=== PATIENT | male | born 1990 | race Asian ===

== ENCOUNTER 2016-08-21 12:08 | Outpatient (CLI) | payer OTHER | END 2016-08-21 12:09 | disposition home or self-care (01) | DX: S13.8XXA Sprain of joints and ligaments of other parts of neck, initial encounter (principal); S23.8XXA Sprain of other specified parts of thorax, initial encounter; S33.5XXA Sprain of ligaments of lumbar spine, initial encounter; S33.8XXA Sprain of other parts of lumbar spine and pelvis, initial encounter; M54.30 Sciatica, unspecified side; M62.40 Contracture of muscle, unspecified site ==

== ENCOUNTER 2016-11-12 14:51 | Outpatient (CLI) | payer MEDICAID | END 2016-11-12 23:59 | disposition home or self-care (01) | DX: R10.13 Epigastric pain (principal) ==

== ENCOUNTER 2017-07-22 03:00 | Emergency (ER) | payer MEDICAID ==
[2017-07-22] MEDS ORDERED: SODIUM CHLORIDE 0.9% 1,000 ML IV ONE (03:21)
[2017-07-22] MEDS ORDERED: KETOROLAC 30 MG/ML VIAL IVP STA (03:22)
--- NOTE | 2017-07-22 03:41 | ED Physician Documentation ---
History of Present Illness - Stated complaint Stated Complaint: HEADACHE - Chief complaint Chief Complaint: General - History obtained from History obtained from: Patient (pt with a hx of daily headaches that is not taking his daily headache medications becasue "it has too many sideeffects" who also has had CT and MRI for his headaches in the past 6 months here for evaluation of a right frontal headache and posterior headache. states that he woke from sleep approx 1 hour prior to arrival to the ER with this symptoms. states that it is different from his prior heaches in location and intensity. No fevers, no trauma) Review of Systems Constitutional: denies: Fever, Chills Eyes: reports: Decreased vision (blurry), Photophobia. denies: Loss of vision Ears: denies: Ear pain, Drainage/discharge, Tinnitus/ringing Nose: denies: Congestion, Sinus pressure / pain Throat: denies: Sore throat Cardiac: denies: Chest pain / pressure Respiratory: denies: Cough GI: denies: Nausea, Vomiting, Constipation, Diarrhea Skin: denies: Rash, Lesions Musculoskeletal: denies: Neck pain, Back pain Neurologic: reports: Headache. denies: Generalized weakness, Confused, Altered mental status, Head injury, LOC PD PAST MEDICAL HISTORY - Past Medical History Past Medical History: Yes Cardiovascular: None Respiratory: None Neuro: None Endocrine/Autoimmune: None GI: None : None HEENT: None Psych: None Musculoskeletal: None Derm: None Other Past Medical History: MIGRAINE HEADACHES.. - Past Surgical History Past Surgical History: Yes General: Other HEENT: Tonsil/Adenoidectomy - Allergies Allergies/Adverse Reactions: Allergies Allergy/AdvReac Type Severity Reaction Status Date / Time Sulfa (Sulfonamide AdvReac Rash Verified 07/22/17 03:12 Antibiotics) - Social History Does the pt smoke?: No Smoking Status: Never smoker Does the pt drink ETOH?: Yes Does the pt have substance abuse?: No - Immunizations Immunizations are current?: Yes - POLST Patient has POLST: No PD ED PE NORMAL - Vitals Vital signs reviewed: Yes - General General: Alert and oriented X 3, No acute distress, Well developed/nourished - HEENT HEENT: Atraumatic, PERRL, EOMI, Moist mucous membranes, Pharynx benign - Cardiac Cardiac: RRR, No murmur - Respiratory Respiratory: No respiratory distress, Clear bilaterally - Derm Derm: Normal color, No rash - Extremities Extremities: No deformity, No edema - Neuro Neuro: Alert and oriented X 3, phlebotomy technologist 2-12 intact, No motor deficit, No sensory deficit, Normal speech Eye Opening: Spontaneous Motor: Obeys Commands Verbal: Oriented GCS Score: 15 - Psych Psych: Normal mood, Normal affect PD ED PE EXPANDED - Neck Neck: Supple w/out meningeal sx, No tenderness. No: Stiff neck, Soft tissue TTP , Bony TTP, Limited ROM - Neuro Neuro: Alert and Oriented X 3, Normal motor, Normal Sensation, Normal Speech, CNII-XII intact, PERRL, Normal gait, Normal speech. No: Confused, Disoriented, Lethargic, Obtunded, Unresponsive, Weakness, Abnormal sensation, CN deficit, Dyscongugate gaze, Nystagmus, Aphasia, Dysarthria Results - Vitals Vitals: Vital Signs - 24 hr 07/22/17 07/22/17 07/22/17 03:09 04:19 04:34 Temperature 36.0 C L Heart Rate 85 69 Respiratory 17 16 16 Rate Blood Pressure 119/81 H 121/89 H O2 Saturation 99 99 07/22/17 05:53 Temperature Heart Rate Respiratory 15 Rate Blood Pressure O2 Saturation Oxygen O2 Source Room air PD MEDICAL DECISION MAKING - ED course Complexity details: considered differential, d/w patient ED course: pt with hx of headaches. Initial orders of reglan and benadryl the pt declined because it said that it gave him the feeling of "impending doom" the last time he took it. He declined the offer for other medications like phenergan and haldol. He stated that the only medicaitons that he took in the past that helped were hydrocodone. i told him that I do not give opioids for hedaches and offered toradol which he accepted. he was able to sleep and on re- evaluation he stated that the headache was a 3/10 and improved. Will send home. pt given return precautions. Departure - Departure Disposition: 01 Home, Self Care Clinical Impression: Headache Condition: Good Instructions: ED Cephalgia Unspecified Follow-Up: Eliane Chirinos DO [Primary Care Provider] - Comments: Recommend that you take all of your medications as directed. Call your primary care provider for a follow up and return to the ER for any new symptoms.
[2017-07-22] MEDS: diphenhydrAMINE INJ 50 MG/ML VIAL IVP STA ×2 (03:42→03:53)
[2017-07-22] MEDS: METOCLOPRAMIDE 10 MG/2 ML VIAL IVP STA ×2 (03:42→03:53)
[2017-07-22 06:49] VITALS: BP 122/84
== END 2017-07-22 06:57 | disposition home or self-care (01) ==
LOC: ED 03:00
DX: R51 Headache (principal)
CPT/HCPCS: 96361; 96374; 99283; 99284

== ENCOUNTER 2017-08-20 16:29 | Emergency (ER) | payer MEDICAID ==
[2017-08-20] MEDS ORDERED: KETOROLAC 30 MG/ML VIAL IM STA (17:04)
[2017-08-20] MEDS ORDERED: HYDROmorphone 1 MG/ML SYRINGE IM STA (17:04)
--- NOTE | 2017-08-20 17:07 | ED Physician Documentation ---
History of Present Illness - Stated complaint Stated Complaint: AB PX - Chief complaint Chief Complaint: Abd Pain - History obtained from History obtained from: Patient (pt is here with what he thinks is a left sided kidney stone. he states that 1 year ago he had the same symptoms and he had a CT which said that he had a stone. he staes that over the past couple days he has had slight symptoms then today had a sudden onset of left flank pain. no fevers, no urinary sx.) Review of Systems Constitutional: denies: Fever, Chills Respiratory: denies: Dyspnea GI: reports: Abdominal Pain, Nausea, Vomiting. denies: Abdominal Swelling, Constipation, Diarrhea : denies: Dysuria, Hesitancy, Unable to Void, Hematuria Skin: denies: Rash, Lesions Musculoskeletal: reports: Other (left flank pain). denies: Back pain Neurologic: denies: Headache PD PAST MEDICAL HISTORY - Past Medical History Cardiovascular: None Respiratory: None Neuro: None Endocrine/Autoimmune: None GI: None : None HEENT: None Psych: None Musculoskeletal: None Derm: None - Past Surgical History Past Surgical History: Yes General: Other HEENT: Tonsil/Adenoidectomy - Present Medications Home Medications: Ambulatory Orders Medication Instructions Recorded Confirmed Dextroamphetamine/Amphetamine 40 mg ORAL BID 08/20/17 08/20/17 [Adderall 20 mg Tablet] HYDROcod/ACETAM 5/325 [[place] 5/325] 1 each PO Q6H PRN #14 tablet 08/20/17 Ondansetron Odt [Zofran Odt] 4 mg TL Q6H PRN #10 tablet 08/20/17 - Allergies Allergies/Adverse Reactions: Allergies Allergy/AdvReac Type Severity Reaction Status Date / Time Sulfa (Sulfonamide AdvReac Rash Verified 08/20/17 16:34 Antibiotics) - Social History Does the pt smoke?: No Smoking Status: Never smoker Does the pt drink ETOH?: Yes Does the pt have substance abuse?: No - Immunizations Immunizations are current?: Yes - POLST Patient has POLST: No PD ED PE NORMAL - Vitals Vital signs reviewed: Yes - General General: Alert and oriented X 3, No acute distress - Cardiac Cardiac: RRR, No murmur - Respiratory Respiratory: No respiratory distress - Abdomen Abdomen: Soft, Other (no increase in tenderness to the right flank. ) - Back Back: No: No CVA TTP (left CVA tenderness) - Derm Derm: Normal color, No rash - Extremities Extremities: No deformity - Neuro Neuro: Alert and oriented X 3 Eye Opening: Spontaneous Motor: Obeys Commands Verbal: Oriented GCS Score: 15 - Psych Psych: Normal mood, Normal affect Results - Vitals Vitals: Vital Signs - 24 hr 08/20/17 16:32 Temperature 36.6 C Heart Rate 61 Respiratory 18 Rate Blood Pressure 172/98 H O2 Saturation 100 Oxygen O2 Source Room air PD MEDICAL DECISION MAKING - ED course Complexity details: d/w patient ED course: pt with hx of renal stones. no hx of kidney problems. had some vomiting today. discussed with patient. will hold on CT for now. w/o a hx of renal problems will hold on labs for now. pt has no sx of a UTI. discussed this with the patient. given IM meds here in the ER. he was given return precautions. Departure - Departure Disposition: Home, Self Care Clinical Impression: Renal colic on left side Condition: Good Instructions: ED Stone Renal W Colic Follow-Up: Eliane Chirinos DO [Primary Care Provider] - Prescriptions: HYDROcod/ACETAM 5/325 [[place] 5/325] 1 each PO Q6H PRN #14 tablet PRN Reason: Pain Ondansetron Odt [Zofran Odt] 4 mg TL Q6H PRN #10 tablet PRN Reason: Nausea / Vomiting Comments: take all of your medications as instructed. Return to the ER for any new symptoms, fevers, inability to tolerate oral fluids or any other new or worsening symptoms.
[2017-08-20 17:55] VITALS: BP 124/82
== END 2017-08-20 17:55 | disposition home or self-care (01) ==
LOC: ED 16:29
DX: N23 Unspecified renal colic (principal); Z87.442 Personal history of urinary calculi
CPT/HCPCS: 96372; 99283; J1170

== ENCOUNTER 2017-08-25 16:27 | Emergency (ER) | payer MEDICAID ==
[2017-08-25] MEDS ORDERED: ONDANSETRON 4 MG/2 ML VIAL IVP STA (18:31)
[2017-08-25] MEDS ORDERED: KETOROLAC 60 MG/2 ML VIAL IVP STA (18:31)
[2017-08-25] MEDS ORDERED: HYDROmorphone 1 MG/ML SYRINGE IVP STA ×2 (18:31→19:25)
[2017-08-25] MEDS ORDERED: SODIUM CHLORIDE 0.9% 1,000 ML IV ONE (18:32)
--- NOTE | 2017-08-25 18:33 | ED Physician Documentation ---
History of Present Illness - Stated complaint Stated Complaint: BACK PX - Chief complaint Chief Complaint: General - History obtained from History obtained from: Patient - History of Present Illness Timing: Other (He had a kidney stone on the left last year, the CT was reviewed , it was actually May 2016, he had a 3 mm left distal ureteral calculus. He had recurrent pain over last few days and was seen here. He was better with pain medicine but now he is out. No hematuria. Pain is of the left flank radiating to the left lower quadrant.) Review of Systems Constitutional: reports: Reviewed and negative Cardiac: denies: Chest pain / pressure, Palpitations Respiratory: denies: Dyspnea, Cough GI: reports: Abdominal Pain, Nausea : denies: Dysuria, Frequency, Hesitancy, Hematuria PD PAST MEDICAL HISTORY - Past Medical History Cardiovascular: None Respiratory: None Neuro: None Endocrine/Autoimmune: None GI: None : None HEENT: None Psych: None Musculoskeletal: None Derm: None - Past Surgical History Past Surgical History: Yes General: Other HEENT: Tonsil/Adenoidectomy - Present Medications Home Medications: Ambulatory Orders Medication Instructions Recorded Confirmed Dextroamphetamine/Amphetamine 40 mg ORAL BID 08/20/17 08/20/17 [Adderall 20 mg Tablet] Ondansetron Odt [Zofran Odt] 4 mg TL Q6H PRN #10 tablet 08/20/17 HYDROcod/ACETAM 5/325 [[place] 5/325] 1 - 2 ea PO Q6H PRN #15 tablet 08/25/17 Tamsulosin [Flomax] 0.4 mg PO DAILY #14 capsule 08/25/17 - Allergies Allergies/Adverse Reactions: Allergies Allergy/AdvReac Type Severity Reaction Status Date / Time Sulfa (Sulfonamide AdvReac Rash Verified 08/25/17 16:45 Antibiotics) - Social History Does the pt smoke?: No Smoking Status: Never smoker Does the pt drink ETOH?: Yes Does the pt have substance abuse?: No - Immunizations Immunizations are current?: Yes - POLST Patient has POLST: No PD ED PE NORMAL - Vitals Vital signs reviewed: Yes - General General: Alert and oriented X 3, No acute distress - Respiratory Respiratory: No respiratory distress, Clear bilaterally - Abdomen Abdomen: Normal bowel sounds, Soft, Non tender - Back Back: No CVA TTP, No spinal TTP - Extremities Extremities: No edema, No calf tenderness / cord - Neuro Neuro: Alert and oriented X 3, Normal speech Results - Vitals Vitals: Vital Signs - 24 hr 08/25/17 16:42 Temperature 37.4 C Heart Rate 64 Respiratory 16 Rate Blood Pressure 137/83 H O2 Saturation 99 Oxygen O2 Source Room air - Labs Labs: Laboratory Tests 08/25/17 08/25/17 08/25/17 18:55 18:55 19:10 WBC 5.8 RBC 5.16 Hgb 14.8 Hct 43.8 MCV 85.0 MCH 28.6 MCHC 33.7 RDW 12.5 Plt Count 246 MPV 7.7 Neut # 3.6 Lymph # 1.7 [place] # 0.4 Eos # 0.1 Baso # 0.1 Absolute Nucleated RBC 0.00 Nucleated RBC % 0.0 Sodium 139 Potassium 3.6 Chloride 106 Carbon Dioxide 24 Anion Gap 9.0 BUN 12 Creatinine 0.9 Estimated GFR (MDRD) 101 Glucose 86 Calcium 8.4 L Total Bilirubin 0.4 AST 22 ALT 39 Alkaline Phosphatase 46 Total Protein 6.9 Albumin 4.2 Globulin 2.7 Albumin/Globulin Ratio 1.6 Lipase 25 Urine Color YELLOW Urine Clarity CLEAR Urine pH 7.0 Ur Specific [place] <=1.005 Urine Protein NEGATIVE Urine Glucose (UA) NEGATIVE Urine Ketones NEGATIVE Urine Occult Blood NEGATIVE Urine Nitrite NEGATIVE Urine Bilirubin NEGATIVE Urine Urobilinogen 0.2 (NORMAL) Ur Leukocyte Esterase NEGATIVE Ur Microscopic Review NOT INDICATED Urine Culture Comments NOT INDICATED PD MEDICAL DECISION MAKING - ED course ED course: 27-year-old gentleman with history of renal colic presents with pain similar to prior. Workup and exam are benign and feeling better after medications. Departure - Departure Disposition: ED Transfer to [facility] Clinical Impression: Renal colic on left side Condition: Good Record reviewed to determine appropriate education?: Yes Instructions: ED Stone Renal W Colic Prescriptions: HYDROcod/ACETAM 5/325 [[place] 5/325] 1 - 2 ea PO Q6H PRN #15 tablet PRN Reason: Pain Tamsulosin [Flomax] 0.4 mg PO DAILY #14 capsule Comments: Consider following up with the urologist, the closest is in [place], the number is [phone]. Drink plenty fluids. Your blood pressure was elevated today on check into the emergency department. This does not mean that you have hypertension, it is a common phenomenon to come to the emergency department and have elevated blood pressure. I recommend that you see your primary care physician within the week to have it rechecked when you are feeling better. Do not drink or drive while taking narcotic pain medication. Note that many narcotic pain relievers also contain Tylenol/acetaminophen. Please ensure that your total dose of acetaminophen from all sources does not exceed 3 g (3000 mg) per day. You may get constipated while on this medication. Take a stool softener such as Colace twice a day while you are on it. Also add an ipwz-jeg-mexgvji laxative such as senna or MiraLAX on any day that you do not have a bowel movement. If you received a narcotic pain medication or sedative while in the emergency department, do not drive for the next 24 hours.
[2017-08-25 19:04] LABS: BASOPHILS # (AUTO) 0.1 10^3/uL (0.0-0.1); BASOPHILS % (AUTO) 2.1 %; EOSINOPHILS # (AUTO) 0.1 10^3/uL (0.0-0.7); EOSINOPHILS % (AUTO) 1.7 %; HGB - HEMOGLOBIN 14.8 g/dL (14.0-18.0); LYMPHOCYTES # (AUTO) 1.7 10^3/uL (1.5-3.5); LYMPHOCYTES % (AUTO) 28.5 %; MEAN CORPUSCULAR HEMOGLOBIN 28.6 pg (27.0-31.0); MEAN CORPUSCULAR HGB CONC 33.7 g/dL (32.0-36.0); MEAN PLATELET VOLUME 7.7 fL (7.4-11.4); MONOCYTES # (AUTO) 0.4 10^3/uL (0.0-1.0); MONOCYTES % (AUTO) 6.3 %; NEUTROPHILS # (AUTO) 3.6 10^3/uL (1.5-6.6); NEUTROPHILS % (AUTO) 61.4 %; PLT - PLATELET COUNT 246 10^3/uL (130-450); RED BLOOD COUNT 5.16 10^6/uL (4.70-6.10); RED CELL DISTRIBUTION WIDTH 12.5 % (12.0-15.0); WHITE BLOOD COUNT 5.8 x10^3/uL (4.8-10.8)
[2017-08-25 19:17] LABS: BILIRUBIN,URINE NEGATIVE (NEGATIVE); GLUCOSE, URINE (UA) NEGATIVE (NEGATIVE); KETONES,URINE (UA) NEGATIVE (NEGATIVE); LEUKOCYTE ESTERASE, URINE NEGATIVE (NEGATIVE); NITRITE,URINE NEGATIVE (NEGATIVE); OCCULT BLOOD,URINE NEGATIVE (NEGATIVE); PROTEIN,URINE NEGATIVE (NEGATIVE); UROBILINOGEN,URINE 0.2 (NORMAL) E.U./dL (NORMAL)
[2017-08-25 19:18] LABS: CLARITY,URINE CLEAR (CLEAR)
[2017-08-25 19:19] LABS: ALBUMIN 4.2 g/dL (3.2-5.5); ALBUMIN/GLOBULIN RATIO 1.6 (1.0-2.2); BILIRUBIN,TOTAL 0.4 mg/dL (0.2-1.0); CALCIUM 8.4 mg/dL (8.5-10.3); CREATININE 0.9 mg/dL (0.6-1.2); TOTAL PROTEIN 6.9 g/dL (6.7-8.2)
[2017-08-25 19:31] VITALS: BP 126/79
== END 2017-08-25 19:43 | disposition home or self-care (01) ==
LOC: ED 16:27
DX: N23 Unspecified renal colic (principal); R03.0 Elevated blood-pressure reading, without diagnosis of hypertension
CPT/HCPCS: 36415; 80053; 81003; 83690; 85025; 96361; 96374; 96376; 99283; J1170; 81001; 87086

== ENCOUNTER 2017-08-29 12:57 | Emergency (ER) | payer MEDICAID ==
--- NOTE | 2017-08-29 14:02 | ED Physician Documentation ---
PD HPI ABD PAIN - Stated complaint Stated Complaint: ABD, NECK PX - Chief complaint Chief Complaint: General - History obtained from History obtained from: Patient - History of Present Illness Timing - onset: Yesterday Timing - duration: Days (1 day of marked pain but was having a week of intermittent mild left flank pain.) Timing - details: Abrupt onset, Still present, Waxing and waning Quality: Cramping, Aching, Sharp Location: LUQ, LLQ Radiation: Left flank, Left shoulder (and neck) Improved by: No: Eating, Position, Meds (tried Ibuprofen without improvement) Worsened by: No: Eating, Moving, Breathing, Position Associated symptoms: Nausea. No: Fever, Vomiting, Diarrhea, Constipation, Melena, Near syncope / syncope, Weight loss Similar symptoms before: Diagnosis (abd/flank pain similar to a kidney stone in the past) Review of Systems Constitutional: denies: Fever, Chills Nose: denies: Rhinorrhea / runny nose, Congestion Throat: denies: Sore throat Respiratory: denies: Dyspnea, Cough GI: reports: Abdominal Pain, Nausea, Vomiting. denies: Diarrhea : denies: Dysuria, Frequency Skin: denies: Rash, Lesions PD PAST MEDICAL HISTORY - Past Medical History Cardiovascular: None Respiratory: None Neuro: None Endocrine/Autoimmune: None GI: None : None HEENT: None Psych: None Musculoskeletal: None Derm: None - Past Surgical History Past Surgical History: Yes General: Other HEENT: Tonsil/Adenoidectomy - Present Medications Home Medications: Ambulatory Orders Medication Instructions Recorded Confirmed Dextroamphetamine/Amphetamine 40 mg ORAL BID 08/20/17 08/20/17 [Adderall 20 mg Tablet] Dexamethasone [Decadron] 4 mg PO DAILY #5 tablet 08/29/17 HYDROcodone/ACET 7.5/325 [[place] 1 each PO Q6H PRN #25 tablet 08/29/17 7.5/325] Ondansetron Odt [Zofran] 4 mg TL Q6H PRN #15 tablet 08/29/17 - Allergies Allergies/Adverse Reactions: Allergies Allergy/AdvReac Type Severity Reaction Status Date / Time Sulfa (Sulfonamide AdvReac Rash Verified 08/29/17 13:05 Antibiotics) - Social History Does the pt smoke?: No Smoking Status: Never smoker Does the pt drink ETOH?: Yes Does the pt have substance abuse?: No - Immunizations Immunizations are current?: Yes - POLST Patient has POLST: No PD ED PE NORMAL - Vitals Vital signs reviewed: Yes - General General: Alert and oriented X 3, Well developed/nourished, Other (moderately in pain) - HEENT HEENT: Pharynx benign - Neck Neck: Supple, no meningeal sign, No adenopathy - Cardiac Cardiac: RRR, No murmur - Respiratory Respiratory: Clear bilaterally - Abdomen Abdomen: Normal bowel sounds, Soft, Non distended, No organomegaly, Other (some tender left mid abdomen to LLQ. No guarding nor percussion tendernees ) - Back Back: Other (left CVA tender) - Derm Derm: Normal color, Warm and dry - Extremities Extremities: No deformity, No tenderness to palpate - Neuro Neuro: Alert and oriented X 3, No motor deficit, Normal speech Results - Vitals Vitals: Oxygen O2 Source Room air - Labs Labs: Laboratory Tests 08/29/17 16:40 Urine Color YELLOW Urine Clarity CLEAR Urine pH 7.0 Ur Specific [place] 1.015 Urine Protein NEGATIVE Urine Glucose (UA) NEGATIVE Urine Ketones NEGATIVE Urine Occult Blood NEGATIVE Urine Nitrite NEGATIVE Urine Bilirubin NEGATIVE Urine Urobilinogen 0.2 (NORMAL) Ur Leukocyte Esterase NEGATIVE Ur Microscopic Review NOT INDICATED - Rads (name of study) KUB CT Radiology: Prelim report reviewed, EMP read contemporaneously (5 MM STONE PROXIMAL URETER with moderate obstruction. ) PD MEDICAL DECISION MAKING - ED course Complexity details: reviewed results, re-evaluated patient (pain improved with meds. He says is tolerable/moderate. Neck pain gone. Presume muscular neck pain from tightness/pain. o signs of vascular process and he does have a kdiney stone. ? diaphragmatic irritation from stone?), considered differential ( symptoms c/w renal stone, but also with pain left back and neck. Concern for vascular instead, particularly aorta. Get CT chest and abdomen. ), d/w patient Departure - Departure Disposition: 01 Home, Self Care Clinical Impression: Flank pain, Renal colic on left side, Neck pain Condition: Stable Record reviewed to determine appropriate education?: Yes Instructions: ED Stone Renal W Colic Follow-Up: Eliane Chirinos DO [Primary Care Provider] - [facility] [Provider Group] Prescriptions: Dexamethasone [Decadron] 4 mg PO DAILY #5 tablet HYDROcodone/ACET 7.5/325 [[place] 7.5/325] 1 each PO Q6H PRN #25 tablet PRN Reason: Pain Ondansetron Odt [Zofran] 4 mg TL Q6H PRN #15 tablet PRN Reason: Nausea / Vomiting Comments: Drink lots of fluids. Use Decadron daily for inflammation. Tylenol or hydrocodone if needed for pain. Continue the previous tamsulosin to dilate the ureter. Follow-up with urology if not passed the stone by Friday, call for an appointment. Discharge Date/Time: 08/29/17 18:13
[2017-08-29] MEDS ORDERED: ONDANSETRON 4 MG/2 ML VIAL IVP STA ×2 (14:43→16:10)
[2017-08-29] MEDS ORDERED: HYDROmorphone 1 MG/ML SYRINGE IVP STA ×3 (14:43→16:46)
[2017-08-29] MEDS ORDERED: KETOROLAC 60 MG/2 ML VIAL IVP STA ×2 (14:43→16:10)
[2017-08-29] MEDS ORDERED: SODIUM CHLORIDE 0.9% 1,000 ML IV ONE ×2 (14:43→16:10)
[2017-08-29] MEDS ORDERED: KETOROLAC 60 MG/2 ML VIAL IM STA (15:47)
[2017-08-29] MEDS ORDERED: PROMETHAZINE 25 MG/1 ML VIAL IM STA (15:47)
[2017-08-29] MEDS ORDERED: HYDROmorphone 1 MG/ML SYRINGE IM STA (15:47)
--- NOTE | 2017-08-29 16:09 | CT Report ---
EXAM: CT CHEST EXAM DATE: 08/29/2017 03:34 PM. CLINICAL HISTORY: Left flank/abd pain c/w stone, now left chest. COMPARISONS: None. TECHNIQUE: Routine helical CT imaging was performed through the chest. IV contrast: None. Reconstruct ions: Coronal and sagittal. In accordance with CT protocol optimization, one or more of the following dose reduction techniques w ere utilized for this exam: automated exposure control, adjustment of mA and/or KV based on patient s ize, or use of iterative reconstructive technique. FINDINGS: Lungs/Pleura: No nodules, bronchial thickening, consolidation, or edema. Pulmonary vasculature is nor mal. No pericardial or pleural effusion. No pneumothorax. Mediastinum: Normal. No adenopathy or masses. The heart and great vessels are normal. Bones: Unremarkable. Visualized Abdomen: Dictated in separate report. Other: None. IMPRESSION: Negative chest CT. [facility] Referring Provider Line: [phone] SITE ID: [id number]
--- NOTE | 2017-08-29 16:12 | CT Report ---
EXAM: CT ABDOMEN AND PELVIS (CT KUB) EXAM DATE: 08/29/2017 03:34 PM. CLINICAL HISTORY: Left flank/abd and now chest pain. COMPARISONS: None. TECHNIQUE: Routine axial helical CT imaging was performed through the abdomen and pelvis without IV c ontrast. Reconstructions: Coronal and sagittal. In accordance with CT protocol optimization, one or more of the following dose reduction techniques w ere utilized for this exam: automated exposure control, adjustment of mA and/or KV based on patient s ize, or use of iterative reconstructive technique. FINDINGS: Lung Bases: Unremarkable. Right Kidney/Ureter: There is a 2 mm nonobstructing stone in the upper pole of the right kidney. No u reter stone or hydronephrosis. Left Kidney/Ureter: There is a 5 x 4 mm proximal left ureter stone with [id number]-[id number] left pelvic caliectasis. No other kidney stones. Other Solid Organs: Noncontrast images of the solid organs are grossly unremarkable. Gallbladder/Bile Ducts: Unremarkable. Peritoneal Cavity: No free fluid, free air or ignacio adenopathy. Bowel is grossly unremarkable. Pelvic Organs: No bladder stones or wall thickening. Noncontrast images of the visualized pelvic orga ns are unremarkable. Vasculature: Unremarkable. Other: None. IMPRESSION: 1. 5 x 4 mm proximal left ureter stone with [id number] left hydronephrosis. 2. 2 mm nonobstructing right kidney stone. [facility] Referring Provider Line: [phone] SITE ID: [id number]
[2017-08-29 16:46] LABS: BILIRUBIN,URINE NEGATIVE (NEGATIVE); GLUCOSE, URINE (UA) NEGATIVE (NEGATIVE); KETONES,URINE (UA) NEGATIVE (NEGATIVE); LEUKOCYTE ESTERASE, URINE NEGATIVE (NEGATIVE); NITRITE,URINE NEGATIVE (NEGATIVE); OCCULT BLOOD,URINE NEGATIVE (NEGATIVE); PROTEIN,URINE NEGATIVE (NEGATIVE); UROBILINOGEN,URINE 0.2 (NORMAL) E.U./dL (NORMAL)
[2017-08-29] MEDS ORDERED: LIDOCAINE-MPF 2% 10 ML in SODIUM CHLORIDE 0.9% 50 ML IV STA (16:46)
[2017-08-29 16:48] LABS: CLARITY,URINE CLEAR (CLEAR)
[2017-08-29] MEDS ORDERED: LIDOCAINE-MPF 2% 5 ML VIAL ONE (17:07)
[2017-08-29] MEDS ORDERED: DEXAMETHASONE 10 MG/ML VIAL IVP STA (17:08)
[2017-08-29 18:08] VITALS: BP 148/99
== END 2017-08-29 18:13 | disposition home or self-care (01) ==
LOC: ED 12:57
DX: R10.31 Right lower quadrant pain (principal); N23 Unspecified renal colic
CPT/HCPCS: 71250; 74176; 81003; 96361; 96365; 96375; 96376; 99283; 99284; J1170; J7040; 81001

== ENCOUNTER 2017-09-16 20:33 | Emergency (ER) | payer MEDICAID ==
[2017-09-16 22:27] LABS: BILIRUBIN,URINE NEGATIVE (NEGATIVE); GLUCOSE, URINE (UA) NEGATIVE (NEGATIVE); KETONES,URINE (UA) NEGATIVE (NEGATIVE); LEUKOCYTE ESTERASE, URINE NEGATIVE (NEGATIVE); NITRITE,URINE NEGATIVE (NEGATIVE); OCCULT BLOOD,URINE LARGE (NEGATIVE); PROTEIN,URINE NEGATIVE (NEGATIVE); UROBILINOGEN,URINE 0.2 (NORMAL) E.U./dL (NORMAL)
[2017-09-16 22:29] LABS: CLARITY,URINE CLEAR (CLEAR)
[2017-09-16 22:37] LABS: BACTERIA,URINE Rare /HPF (None Seen); CRYSTALS,URINE 3-5 Calcium Oxalate /LPF; MUCUS,URINE Few Strands; SQUAMOUS EPITHELIAL CELL,UR FEW Squamous (<= Few)
--- NOTE | 2017-09-16 23:38 | ED Physician Documentation ---
PD HPI MALE - Stated complaint Stated Complaint: KIDNEY STONES - Chief complaint Chief Complaint: Abd Pain - History obtained from History obtained from: Patient - History of Present Illness Timing - details: Abrupt onset, Intermittant Associated symptoms: Abdominal pain (left flank pain). No: Dysuria, Urinary frequency Similar symptoms before: Diagnosis (renal colic) Recently seen: Emergency Dept - Additional information Additional information: c/o left flank pain x few weeks, has been seen in this ED as well as outpatient for same, ran out of pain medication (lortab). he has his initial appointment with urology in [facility] scheduled for the . requesting pain medication to last until then PD PAST MEDICAL HISTORY - Past Medical History Past Medical History: Yes Cardiovascular: None Respiratory: None Neuro: None Endocrine/Autoimmune: None GI: None : None, Kidney stones HEENT: None Psych: None Musculoskeletal: None Derm: None - Past Surgical History Past Surgical History: Yes General: Other HEENT: Tonsil/Adenoidectomy - Present Medications Home Medications: Ambulatory Orders Medication Instructions Recorded Confirmed Dextroamphetamine/Amphetamine 40 mg ORAL BID 08/20/17 08/20/17 [Adderall 20 mg Tablet] Dexamethasone [Decadron] 4 mg PO DAILY #5 tablet 08/29/17 HYDROcodone/ACET 7.5/325 [[place] 1 each PO Q6H PRN #25 tablet 08/29/17 7.5/325] Ondansetron Odt [Zofran] 4 mg TL Q6H PRN #15 tablet 08/29/17 Hydrocodone/Acetaminophen 1 - 2 each PO Q6HR PRN #14 tablet 09/16/17 [Hydrocodon-Acetaminophen 5-325] - Allergies Allergies/Adverse Reactions: Allergies Allergy/AdvReac Type Severity Reaction Status Date / Time Sulfa (Sulfonamide AdvReac Rash Verified 08/29/17 13:05 Antibiotics) - Social History Does the pt smoke?: No Smoking Status: Never smoker Does the pt drink ETOH?: Yes Does the pt have substance abuse?: No - Immunizations Immunizations are current?: Yes - POLST Patient has POLST: No Results - Vitals Vitals: Oxygen O2 Source Room air - Labs Labs: Laboratory Tests 09/16/17 21:29 Urine Color YELLOW Urine Clarity CLEAR Urine pH 6.0 Ur Specific [place] 1.010 Urine Protein NEGATIVE Urine Glucose (UA) NEGATIVE Urine Ketones NEGATIVE Urine Occult Blood LARGE H Urine Nitrite NEGATIVE Urine Bilirubin NEGATIVE Urine Urobilinogen 0.2 (NORMAL) Ur Leukocyte Esterase NEGATIVE Urine RBC 11-25 H Urine WBC 0-3 Ur Squamous Epith Cells FEW Squamous Urine Crystals 3-5 Calcium Oxalate Urine Bacteria Rare Urine Mucus Few Strands Ur Microscopic Review INDICATED Urine Culture Comments NOT INDICATED PD MEDICAL DECISION MAKING - ED course Complexity details: reviewed results, re-evaluated patient, considered differential, d/w patient ED course: 5mm proximal left ureteral calculus with mild/moderate hydronephrosis was demonstrated on CT beginning of this month; he is likely experiencing recurrent , intermittent obstruction and resulting renal colic. he says pain radiates down to left testicle as of 2-3 days ago, s/o migration to distal ureter. he also has hematuria on UA tonight. he declined IM analgesia including morphine and dilaudid, and asking for lortab tonight and rx for four pills per day until 23 f/u. Departure - Departure Disposition: 01 Home, Self Care Clinical Impression: Renal colic on left side Condition: Good Instructions: ED Stone Renal W Colic Follow-Up: Eliane Chirinos DO [Primary Care Provider] - Prescriptions: Hydrocodone/Acetaminophen [Hydrocodon-Acetaminophen 5-325] 1 - 2 each PO Q6HR PRN #14 tablet PRN Reason: Pain Comments: Follow up with the urologist as scheduled on the Discharge Date/Time: 09/17/17 00:07
[2017-09-16] MEDS ORDERED: HYDROcod/ACETAM 5/325 MG TABLET PO STA (23:53)
[2017-09-16] MEDS ORDERED: HYDROcod/ACET 5/325 Prepack 6 PO STA (23:54)
[2017-09-17 00:05] VITALS: BP 136/89
== END 2017-09-17 00:07 | disposition home or self-care (01) ==
LOC: ED 20:33
DX: N13.2 Hydronephrosis with renal and ureteral calculous obstruction (principal)
CPT/HCPCS: 81001; 81003; 87086; 99283; 99284

== ENCOUNTER 2017-09-29 16:03 | Emergency (ER) | payer MEDICAID ==
--- NOTE | 2017-09-29 16:54 | ED Physician Documentation ---
PD HPI ABD PAIN - Stated complaint Stated Complaint: ABD PAIN - Chief complaint Chief Complaint: Abd Pain - History obtained from History obtained from: Patient - History of Present Illness Timing - onset: How many months ago (1) Timing - duration: Months (1) Timing - details: Abrupt onset, Still present, Waxing and waning Quality: Cramping, Aching, Sharp (at times), Pain Location: RLQ (initially mostly right flank, but has migrated to be more RLQ with some to the flank.) Radiation: Right flank Improved by: No: Eating, Position Worsened by: No: Eating, Moving Associated symptoms: Nausea. No: Fever, Vomiting, Diarrhea, Constipation, Dysuria, Hematuria Similar symptoms before: Diagnosis (kidney stones) Recently seen: Emergency Dept (seen for this and had CT showing 5 mm stone higher right ureter. Has had continued pain. Had appt with Urologist 09/19 or so , but missed it and has new appt for 07 October. Out of pain meds and also the Flomax.) Review of Systems Constitutional: denies: Fever, Chills, Myalgias Cardiac: denies: Chest pain / pressure, Palpitations Respiratory: denies: Dyspnea, Cough GI: reports: Abdominal Pain, Nausea. denies: Abdominal Swelling, Vomiting, Constipation, Diarrhea : reports: Hematuria (at times). denies: Dysuria, Frequency Skin: denies: Rash, Lesions PD PAST MEDICAL HISTORY - Past Medical History Cardiovascular: None Respiratory: None Neuro: None Endocrine/Autoimmune: None GI: None : None, Kidney stones HEENT: None Psych: None Musculoskeletal: None Derm: None - Past Surgical History Past Surgical History: Yes General: Other HEENT: Tonsil/Adenoidectomy - Present Medications Home Medications: Ambulatory Orders Medication Instructions Recorded Confirmed Dextroamphetamine/Amphetamine 40 mg ORAL BID 08/20/17 08/20/17 [Adderall 20 mg Tablet] Dexamethasone [Decadron] 4 mg PO DAILY #5 tablet 09/29/17 HYDROcod/ACETAM 5/325 [[place] 5/325] 1 tab PO Q6H PRN #25 tablet 09/29/17 Naproxen 375 mg PO BID #20 tablet 09/29/17 Tamsulosin [Flomax] 0.4 mg PO DAILY #10 capsule 09/29/17 - Allergies Allergies/Adverse Reactions: Allergies Allergy/AdvReac Type Severity Reaction Status Date / Time Sulfa (Sulfonamide AdvReac Rash Verified 08/29/17 13:05 Antibiotics) - Social History Does the pt smoke?: No Smoking Status: Never smoker Does the pt drink ETOH?: Yes Does the pt have substance abuse?: No - Immunizations Immunizations are current?: Yes - POLST Patient has POLST: No PD ED PE NORMAL - Vitals Vital signs reviewed: Yes - General General: Alert and oriented X 3, Well developed/nourished, Other (appears in pain.) - Neck Neck: Supple, no meningeal sign, No adenopathy - Cardiac Cardiac: RRR, No murmur - Respiratory Respiratory: Clear bilaterally - Abdomen Abdomen: Soft, Non tender - Back Back: No spinal TTP, Other (moderate right CVA tenderness to percussion. ) - Derm Derm: Normal color, Warm and dry, No rash Results - Vitals Vitals: Vital Signs - 24 hr 09/29/17 09/29/17 16:11 17:38 Temperature 37.5 C 37.2 C Heart Rate 75 72 Respiratory 18 18 Rate Blood Pressure 137/83 H 134/89 H O2 Saturation 99 99 Oxygen O2 Source Room air PD MEDICAL DECISION MAKING - ED course Complexity details: reviewed old records (he did have a stone present on prior CT. States still has not passed it and missed appt with Urology, which is now rescheduled for . Discussed repeat CT but we shared decision to defer to seeing Urology. However, were he to need to come back for more pain meds or appt delays again, I would question it and want to get another CT to see where the stone is currently (prior CT is a month ago) and to verify still has one. ) , reviewed results, considered differential, d/w patient Departure - Departure Disposition: Home, Self Care Clinical Impression: Renal colic on left side Condition: Stable Record reviewed to determine appropriate education?: Yes Instructions: ED Stone Renal W Colic Follow-Up: Eliane Chirinos DO [Primary Care Provider] - Prescriptions: Dexamethasone [Decadron] 4 mg PO DAILY #5 tablet HYDROcod/ACETAM 5/325 [[place] 5/325] 1 tab PO Q6H PRN #25 tablet PRN Reason: Pain Naproxen 375 mg PO BID #20 tablet Tamsulosin [Flomax] 0.4 mg PO DAILY #10 capsule Comments: Drink adequate fluids. Naproxen or ibuprofen twice daily for the next 7-10 days. Decadron daily for 5 days to help with inflammation. Tamsulosin (Flomax ) to try to dilate the ureter or relaxant to promote passage. Continue hydrocodone every the 6 hours if needed for pain. Follow-up with urology on the as planned (rescheduled). Discharge Date/Time: 09/29/17 17:53
[2017-09-29] MEDS ORDERED: TAMSULOSIN 0.4 MG CAPSULE PO STA (17:13)
[2017-09-29] MEDS ORDERED: DEXAMETHASONE 10 MG/ML VIAL PO STA (17:13)
[2017-09-29] MEDS ORDERED: HYDROcod/ACETAM 5/325 MG TABLET PO STA ×2 (17:13→17:16)
[2017-09-29] MEDS ORDERED: NAPROXEN 250 MG TABLET PO STA (17:16)
[2017-09-29 17:39] VITALS: BP 134/89
== END 2017-09-29 17:53 | disposition home or self-care (01) ==
LOC: ED 16:03
DX: N23 Unspecified renal colic (principal); Z87.442 Personal history of urinary calculi
CPT/HCPCS: 99283; A9270

== ENCOUNTER 2018-03-25 07:49 | Emergency (ER) | payer MEDICAID ==
[2018-03-25 08:04] VITALS: BP 126/85
== END 2018-03-25 08:16 | disposition left against medical advice (07) ==
LOC: ED 07:49
DX: M54.2 Cervicalgia (principal); M54.9 Dorsalgia, unspecified; Z53.21 Procedure and treatment not carried out due to patient leaving prior to being seen by health care provider

== ENCOUNTER 2018-03-25 08:55 | Emergency (ER) | payer MEDICAID ==
[2018-03-25 09:07] VITALS: BP 135/95
[2018-03-25] MEDS ORDERED: CYCLOBENZAPRINE 10 MG TABLET PO STA (09:09)
[2018-03-25] MEDS ORDERED: KETOROLAC 60 MG/2 ML VIAL IM STA (09:09)
[2018-03-25] MEDS ORDERED: LIDOCAINE PATCH 5% TOP PRN ×2 (09:09→10:05)
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
[2018-03-25 09:26] LABS: BILIRUBIN,URINE NEGATIVE (NEGATIVE); CLARITY,URINE CLEAR (CLEAR); GLUCOSE, URINE (UA) NEGATIVE (NEGATIVE); KETONES,URINE (UA) NEGATIVE (NEGATIVE); LEUKOCYTE ESTERASE, URINE NEGATIVE (NEGATIVE); NITRITE,URINE NEGATIVE (NEGATIVE); OCCULT BLOOD,URINE NEGATIVE (NEGATIVE); PROTEIN,URINE NEGATIVE (NEGATIVE); UROBILINOGEN,URINE 0.2 (NORMAL) E.U./dL (NORMAL)
== END 2018-03-25 10:15 | disposition home or self-care (01) ==
LOC: ED 08:55
DX: M54.2 Cervicalgia (principal); M54.9 Dorsalgia, unspecified; G89.29 Other chronic pain
CPT/HCPCS: 81003; 96372; 99283; A9270; 81001; 87086

== ENCOUNTER 2018-04-17 21:34 | Emergency (ER) | payer MEDICAID ==
[2018-04-17] MEDS ORDERED: ONDANSETRON 4 MG/2 ML VIAL IVP STA (21:54)
[2018-04-17] MEDS ORDERED: SODIUM CHLORIDE 0.9% 1,000 ML IV ONE (21:54)
[2018-04-17] MEDS ORDERED: KETOROLAC 60 MG/2 ML VIAL IVP STA (21:54)
[2018-04-17 22:08] LABS: BASOPHILS # (AUTO) 0.1 10^3/uL (0.0-0.1); BASOPHILS % (AUTO) 1.7 %; EOSINOPHILS # (AUTO) 0.1 10^3/uL (0.0-0.7); EOSINOPHILS % (AUTO) 1.7 %; HGB - HEMOGLOBIN 13.8 g/dL (14.0-18.0); LYMPHOCYTES # (AUTO) 2.3 10^3/uL (1.5-3.5); MEAN CORPUSCULAR HGB CONC 35.2 g/dL (32.0-36.0); MEAN CORPUSCULAR VOLUME 85.1 fL (80.0-94.0); MEAN PLATELET VOLUME 7.5 fL (7.4-11.4); MONOCYTES # (AUTO) 0.4 10^3/uL (0.0-1.0); MONOCYTES % (AUTO) 5.5 %; NEUTROPHILS # (AUTO) 4.9 10^3/uL (1.5-6.6); NEUTROPHILS % (AUTO) 62.1 %; PLT - PLATELET COUNT 249 10^3/uL (130-450); RED CELL DISTRIBUTION WIDTH 13.6 % (12.0-15.0); WHITE BLOOD COUNT 7.8 x10^3/uL (4.8-10.8)
[2018-04-17 22:20] LABS: ALBUMIN 4.6 g/dL (3.2-5.5); ALBUMIN/GLOBULIN RATIO 1.8 (1.0-2.2); BILIRUBIN,TOTAL 0.6 mg/dL (0.2-1.0); CALCIUM 9.3 mg/dL (8.5-10.3); CREATININE 1.1 mg/dL (0.6-1.2); TOTAL PROTEIN 7.2 g/dL (6.7-8.2)
[2018-04-17 23:40] LABS: BILIRUBIN,URINE NEGATIVE (NEGATIVE); GLUCOSE, URINE (UA) NEGATIVE (NEGATIVE); KETONES,URINE (UA) NEGATIVE (NEGATIVE); LEUKOCYTE ESTERASE, URINE NEGATIVE (NEGATIVE); NITRITE,URINE NEGATIVE (NEGATIVE); OCCULT BLOOD,URINE NEGATIVE (NEGATIVE); PROTEIN,URINE NEGATIVE (NEGATIVE); UROBILINOGEN,URINE 0.2 (NORMAL) E.U./dL (NORMAL)
[2018-04-17 23:42] LABS: CLARITY,URINE CLEAR (CLEAR)
--- NOTE | 2018-04-18 00:04 | CT Report ---
Reason: flank pain Procedure Date: 04/17/2018 Accession Number: [id number] / [id number] Procedure: CT - Abdomen/Pelvis W/O CPT Code: FULL RESULT: EXAM: CT ABDOMEN AND PELVIS (CT KUB) EXAM DATE: 04/17/2018 11:00 PM. CLINICAL HISTORY: Flank pain. COMPARISONS: CHEST W/O 08/29/2017 3:16 PM KUB 08/29/2017 3:16 PM. TECHNIQUE: Routine axial helical CT imaging was performed through the abdomen and pelvis without IV contrast. Reconstructions: Coronal and sagittal. In accordance with CT protocol optimization, one or more of the following dose reduction techniques were utilized for this exam: automated exposure control, adjustment of mA and/or KV based on patient size, or use of iterative reconstructive technique. FINDINGS: Lung Bases: Unremarkable. Right Kidney/Ureter: One 3 mm right mid and two separate 3 mm inferior right nonobstructing stones. No hydronephrosis, hydroureter or perinephric fat stranding. Left Kidney/Ureter: No stones, hydronephrosis, or hydroureter. No perinephric fat stranding. Other Solid Organs: Noncontrast images of the solid organs are grossly unremarkable. Gallbladder/Bile Ducts: Contracted gallbladder. No common bile duct dilation. Peritoneal Cavity: No free fluid, free air or ignacio adenopathy. Bowel is grossly unremarkable. There are multiple diverticula seen which most severely affect the sigmoid colon. No wall thickening or adjacent inflammation seen. No obstruction noted. The appendix is well visualized and normal. Pelvic Organs: No bladder stones or wall thickening. Noncontrast images of the visualized pelvic organs are unremarkable. Vasculature: Unremarkable. Other: None. IMPRESSION: 1. Left kidney and collecting system: -No urinary tract stones or obstruction. 2. Right kidney and collecting system: -Nonobstructing right-sided stones. -No right renal mass or hydronephrosis. -Normal right ureter. 3. Diverticulosis. Normal appendix. No inflammation in the abdomen or pelvis. RADIA
[2018-04-18 00:15] VITALS: BP 128/68
--- NOTE | 2018-04-18 00:35 | ED Physician Documentation ---
PD HPI ABD PAIN - Stated complaint Stated Complaint: ABD PX/BK PX - Chief complaint Chief Complaint: Back Pain - Additional information Additional information: 28-year-old male presents the emergency department with left-sided flank pain which started earlier this evening which radiates into his abdomen. This is similar to prior episodes of kidney stones that he is experienced in the past. The patient denies fever, chills, dysuria, right-sided abdominal pain or nausea or vomiting. No specific triggering factors. No relieving factors. Symptoms are described as moderate Review of Systems Constitutional: denies: Fever, Chills Eyes: denies: Discharge Ears: denies: Ear pain Nose: denies: Congestion Throat: denies: Sore throat Respiratory: denies: Cough GI: reports: Abdominal Pain. denies: Nausea, Vomiting : denies: Dysuria, Testicular pain, Testicular mass Skin: denies: Rash Musculoskeletal: denies: Neck pain Neurologic: denies: Generalized weakness Immunocompromised: denies: Chemotherapy PD PAST MEDICAL HISTORY - Past Medical History Cardiovascular: None Respiratory: None Endocrine/Autoimmune: None GI: None : Kidney stones HEENT: None Psych: None Musculoskeletal: None Derm: None - Past Surgical History Past Surgical History: Yes General: Other HEENT: Tonsil/Adenoidectomy - Present Medications Home Medications: Ambulatory Orders Medication Instructions Recorded Confirmed Ibuprofen [Motrin] 400 mg PO Q6H PRN #30 tablet 03/25/18 - Allergies Allergies/Adverse Reactions: Allergies Allergy/AdvReac Type Severity Reaction Status Date / Time Sulfa (Sulfonamide AdvReac Rash Verified 04/17/18 21:50 Antibiotics) - Social History Does the pt smoke?: No Smoking Status: Never smoker Does the pt drink ETOH?: Yes Does the pt have substance abuse?: No - Immunizations Immunizations are current?: Yes - POLST Patient has POLST: No PD ED PE NORMAL - General General: Alert and oriented X 3 - HEENT HEENT: Atraumatic, PERRL, EOMI, Ears normal - Neck Neck: Supple, no meningeal sign - Cardiac Cardiac: RRR, Strong equal pulses - Respiratory Respiratory: No respiratory distress - Abdomen Abdomen: Normal bowel sounds, Soft, Non tender, Non distended - Back Back: No: No CVA TTP (The patient has left flank pain) - Derm Derm: Normal color - Extremities Extremities: No deformity, No edema - Neuro Neuro: Alert and oriented X 3, Normal speech - Psych Psych: Normal mood Results - Vitals Vitals: Vital Signs - 24 hr 04/17/18 04/18/18 21:47 00:13 Temperature 36.8 C 36.9 C Heart Rate 84 63 Respiratory 18 12 Rate Blood Pressure 131/71 H 128/68 O2 Saturation 100 99 Oxygen O2 Source Room air - Labs Labs: Laboratory Tests 04/17/18 04/17/18 04/17/18 22:00 22:00 23:35 WBC 7.8 RBC 4.60 L Hgb 13.8 L Hct 39.2 L MCV 85.1 MCH 30.0 MCHC 35.2 RDW 13.6 Plt Count 249 MPV 7.5 Neut # (Auto) 4.9 Lymph # (Auto) 2.3 [place] # (Auto) 0.4 Eos # (Auto) 0.1 Baso # (Auto) 0.1 Absolute Nucleated RBC 0.01 Nucleated RBC % 0.2 Sodium 140 Potassium 3.6 Chloride 106 Carbon Dioxide 25 Anion Gap 9.0 BUN 20 Creatinine 1.1 Estimated GFR (MDRD) 80 L Glucose 116 H Calcium 9.3 Total Bilirubin 0.6 AST 25 ALT 29 Alkaline Phosphatase 53 Total Protein 7.2 Albumin 4.6 Globulin 2.6 Albumin/Globulin Ratio 1.8 Lipase 48 Urine Color YELLOW Urine Clarity CLEAR Urine pH 6.0 Ur Specific [place] 1.020 Urine Protein NEGATIVE Urine Glucose (UA) NEGATIVE Urine Ketones NEGATIVE Urine Occult Blood NEGATIVE Urine Nitrite NEGATIVE Urine Bilirubin NEGATIVE Urine Urobilinogen 0.2 (NORMAL) Ur Leukocyte Esterase NEGATIVE Ur Microscopic Review NOT INDICATED Urine Culture Comments NOT INDICATED - Rads (name of study) CT abd/pelvis Radiology: Final report received PD MEDICAL DECISION MAKING - ED course ED course: On reevaluation the patient is resting comfortably and his symptoms appear to be under control. The patient's workup does not reveal any acute abnormality that would necessitate admission to the hospital or acute surgical consultation. Presently the patient appears appropriate for discharge and ongoing outpatient management. I discussed with him the findings and plan and the patient understands and agrees. I discussed warning signs and recommended returning to the emergency department immediately for worsening or concerns. - Sepsis Event Vital Signs: Vital Signs - 24 hr 04/17/18 04/18/18 21:47 00:13 Temperature 36.8 C 36.9 C Heart Rate 84 63 Respiratory 18 12 Rate Blood Pressure 131/71 H 128/68 O2 Saturation 100 99 Oxygen O2 Source Room air Departure - Departure Disposition: 01 Home, Self Care Clinical Impression: Flank pain, acute Condition: Good Instructions: ED Flank Pain Uncertain Cause Follow-Up: Jeanne Campo ND [Primary Care Provider] - Comments: Please return to the ER for worsening symptoms or any concerns
== END 2018-04-18 00:40 | disposition home or self-care (01) ==
LOC: ED 21:34
DX: R10.32 Left lower quadrant pain (principal); Z87.442 Personal history of urinary calculi
CPT/HCPCS: 36415; 74176; 80053; 81001; 81003; 83690; 85025; 87086; 96361; 96374; 99283; 99284

== ENCOUNTER 2022-11-30 05:34 | Outpatient (CLI) | payer MEDICAID | END 2022-11-30 23:59 | disposition EMS.NT | LOC: EMS 05:34 | DX: S69.91XA Unspecified injury of right wrist, hand and finger(s), initial encounter (principal); X58.XXXA Exposure to other specified factors, initial encounter; Y92.29 Other specified public building as the place of occurrence of the external cause ==

== ENCOUNTER 2022-11-30 06:53 | Outpatient (CLI) | payer OTHER, MEDICAID | END 2022-11-30 06:54 | disposition home or self-care (01) | LOC: LAB 06:53 | PROVIDERS: ATTEND Pathology Blood Banking & Transfusion Medicine | DX: Z53.9 Procedure and treatment not carried out, unspecified reason (principal) ==